=== PATIENT | female | born 1940 | race Caucasian/White ===

== ENCOUNTER 2019-03-29 08:50 | Emergency (ER) | payer MEDICARE ==
--- OUTSIDE RECORDS SUMMARY | 2019-03-29 09:16 | XMS REPORT | Continuity of Care Document ---
:1940 External Reference #:[id number] Author Name Marcelino Patricia MD (transmitted by agent of provider Wendi Mcgill) Address [address] [place] [address] Care Team Providers Name Role Phone Juice Esparza MD - Care Team Information Swaging Machine Operator [phone] Endocrinology, Diabetes & Metabolism Tracy Gatica M.D. - Orthopaedic Care Team Information Swaging Machine Operator Surgery Femi Adler M.D. - Orthopaedic Care Team Information Swaging Machine Operator [phone] Surgery Savannah Wharton MD - Care Team Information Swaging Machine Operator [phone] Ophthalmology Marcelino Patricia MD - Family Care Team Information Swaging Machine Operator Medicine Amp Urology Care Team Information Swaging Machine Operator [phone] Jacob Ch DPM - [place] Operator Care Team Information Swaging Machine Operator [phone] Problems Active Problems Provider Date Diverticulitis of colon Onset: 03/06/2016 Type 2 diabetes mellitus Onset: 06/28/2011 Multiple sclerosis Onset: 06/28/2011 Hyperlipidemia Onset: 06/28/2011 Dysuria Onset: 06/28/2011 Female stress incontinence Onset: 06/28/2011 Social History Type Date Description Comments Sex Unknown ETOH Use Denies alcohol use Tobacco Use Reviewed: 03/05/16 Patient has never smoked Smoking Status Reviewed: 03/17/19 Patient has never smoked Allergies, Adverse Reactions, Alerts Active Allergies Reaction Severity Comments Date Tape 06/05/2018 Medications Active Medications SIG Qnty Indications Ordering Provider Date Onetouch Ultra Blue test twice a 100units R73.03 Marcelino 01/18/2019 day and as MD [place] Strips needed dx R73.03 (E11.9 since 2011) E11.9 One Daily For Women 1 by mouth every day 90tabs Marcelino Patricia, 09/14 Tablets Shingrix ok to have 1units Mareclino Patricia, 03/16/2018 50mcg/0.5ML immunization at [facility] Vitamin D take 1 capsule by 4caps Marcelino Patricia, 03/05/2016 (Ergocalciferol) mouth every week [id number] Capsules Cranberry Marcelino Patricia, 03/05/2016 Concentrate 500mg Capsules Oscal 500/200 D-3 1 po tid 90tabs 733.90 Marcelino Patricia, 06/28/2011 [id number] Tablets Baclofen take 4 once a day Unknown 10mg Tablets Donepezil HCL 1 by mouth once a Unknown 10mg day Tablets History Medications Acyclovir apply to affected 15gm B00.1 Marcelino Patricia, 09/21/2018 - 5% area 5 times 12/15/2018 Ointment daily for 5 days as needed Immunizations CPT Code Status Date Vaccine Lot # [id number] Given 03/11/2019 Fluzone High Dose 93780 Given 03/25/2018 Fluzone High Dose 39520 Given 03/13/2017 Tdap - Tetanus/Diptheria/Acellular Pertussis 24129 Given 03/13/2017 Fluzone High Dose 28408 Given 06/24/2016 Pneumococcal Conjugate Vaccine 13 Valent For Intramuscular Use 63732 Given 03/05/2016 Fluzone High Dose 76083 Given 03/03/2015 Fluzone High Dose 32858 Given 02/21/2014 Fluzone High Dose 47403 Given 05/05/2013 Fluzone High Dose 94030 Given 02/28/2012 Influenza Virus 3Yrs & Over 39321 Given 03/26/2011 Pneumonia Vaccine 30657 Given 01/05/2007 Tetanus And Diptheria (Td) For Adult Use Preservative Free 95041 Given 05/10/2004 Pneumonia Vaccine 12741 Given 05/03/2004 Influenza Virus 3Yrs & Over 97303 Given 03/31/2002 Influenza Virus 3Yrs & Over 97774 Given 03/11/2000 Influenza Virus 3Yrs & Over 76780 Given 03/14/1999 Flu Vaccine 23410 Given 03/27/1998 Flu Vaccine 89170 Given 05/18/1996 DT Vaccine Younger Than 7 Yrs 73142 Given 04/15/1995 Flu Vaccine 32048 Given 02/15/1994 Flu Vaccine Vital Signs Date Vital Result Comment 03/17/2019 9:27am Height 63.25 inches 5'3.25" Weight 167.00 lb Heart Rate 80 /min BP Systolic 120 mmHg BP Diastolic 58 mmHg Respiratory Rate 18 /min O2 % BldC Oximetry 97 % room air BMI (Body Mass Index) 29.3 kg/m2 12/15/2018 8:04am Weight 168.50 lb Heart Rate 81 /min BP Systolic 116 mmHg BP Diastolic 56 mmHg O2 % BldC Oximetry 97 % Results Test Date Facility Test Result H/L Range Note Comp Metabolic 12/08/2018 [facility] Sodium 142 mmol/L Normal 135-[address] [place] [address] [phone] Potassium 4.2 mmol/L Normal 3.5-5.0 Chloride 108 mmol/L Normal 101-111 Co2 Carbon Dioxide 32 mmol/L Normal 22-32 Anion Gap 2 mmol/L Normal 2-11 Glucose 108 mg/dL High 70-100 Blood Urea Nitrogen 15 mg/dL Normal 6-24 Creatinine 0.53 mg/dL Normal 0.51-0.95 BUN/Creatinine Ratio 28.3 High 8-20 Calcium 9.6 mg/dL Normal 8.6-10.3 Total Protein 5.9 g/dL Low 6.4-8.9 Albumin 3.9 g/dL Normal 3.2-5.2 Globulin 2.0 g/dL Normal 2-4 Albumin/Globulin Ratio 2.0 Normal 1-3 Total Bilirubin 0.70 mg/dL Normal 0.2-1.0 Alkaline Phosphatase 55 U/L Normal 34-104 Alt 17 U/L Normal 7-52 Ast 23 U/L Normal 13-39 Egfr Non- 111.3 >60 Egfr 134.6 >60 1 Laboratory test 12/08/2018 [facility] Hemoglobin A1c 5.9 % High 4.0-5.[address] (Glyco HGB) [place] [address] [phone] Urine 12/08/2018 [facility] Ur Microalbumin < 15.[address] (mg/L) mg/[place] [address] [phone] Urine Creatinine 53.37 mg/dL Urine Microalbumin/Creatinine TNP <31 3 1 Because ethnic data is not always readily available, this report includes an eGFR for both -Americans and non- Americans. The National Kidney Disease Education Program (NKDEP) does not endorse the use of the MDRD equation for patients that are not between the ages of 18 and 70, are , have extremes of body size, muscle mass, or nutritional status, or are non- or non-. According to the National Kidney Foundation, irrespective of diagnosis, the stage of the disease is based on the level of kidney function: Stage Description GFR(mL/min/1.73 m(2)) 1 Kidney damage with normal or decreased GFR 90 2 Kidney damage with mild decrease in GFR 60-89 3 Moderate decrease in GFR 30-59 4 Severe decrease in GFR 15-29 5 Kidney failure <15 (or dialysis) 2 Therapeutic target for the treatment of diabetes mellitus patients is <7% HBA1C, and in selective patients <6.0%. Please refer to [place] [employer] diabetic care guidelines for further information. 3 Unable to calculate due to low microalbumin Procedures Date Code Description Status 02/26/2019 297528750 Diabetic Foot Exam Completed 02/23/2019 [id number] Diabetic Retinal Eye Exam Completed 12/04/2018 [id number] Diabetic Foot Exam Completed 09/25/2018 [id number] Diabetic Foot Exam Completed 07/17/2018 [id number] Diabetic Foot Exam Completed 05/08/2018 [id number] Diabetic Foot Exam Completed 04/13/2018 [id number] Mammogram Completed 03/04/2018 [id number] Diabetic Foot Exam Completed 11/11/2012 [id number] Colonoscopy Completed Medical Devices Description No Information Available Encounters Type Date Location Provider Dx Diagnosis Office Visit 12/15/2018 [facility] Marcelino Patricia, R73.03 Prediabetes 8:00a G35 Multiple sclerosis Office Visit 11/16/2018 Sorting [employer] Operator Primary Marcelino E11.9 Type 2 diabetes 10:15a Dominick Patricia MD mellitus without complications L84 Corns and callosities Assessments Date Code Description Provider 03/17/2019 Z00.00 Encounter for general adult medical Marcelino Patricia MD examination without abnormal findings 03/17/2019 Z12.31 Encounter for screening mammogram for Marcelino Patricia MD malignant neoplasm of breast 03/17/2019 Z78.0 Asymptomatic menopausal state Marcelino Patricia MD 03/17/2019 E11.9 Type 2 diabetes mellitus without Marcelino Patricia MD complications 03/17/2019 G35 Multiple sclerosis Marcelino Patricia MD 12/15/2018 R73.03 Prediabetes Marcelino Patricia MD 12/15/2018 G35 Kelly sclerosis Marcelino Patricia MD 11/16/2018 E11.9 Type 2 diabetes mellitus without Marcelino Patricia MD complications 11/16/2018 L84 Corns and callosities Marcelino Patricia MD Plan of Treatment Future Appointment(s):06/04/2019 8:00 am - Marcelino Patricia MD at [facility]03/17/2019 - Marcelino Patricia MDZ00.00 Encounter for general adult medical examination without abnormal findingsNew Labs:CBC Auto Diff, Ordered: 03/17/19Z12.31 Encounter for screening mammogram for malignant neoplasm of breastNew Xrays:Mammogram Screening Gray, Ordered: 03/17/19Z78.0 Asymptomatic menopausal stateNew Xrays:Dexa Bone Study, Ordered: 03/17/19E11.9 Type 2 diabetes mellitus without complicationsNew Labs:Comp Metabolic Panel, Ordered: 03/17/19Hemoglobin A1c (Glyco HGB), Ordered: 03/17/19Lipid Profile ( Trig/Chol/HDL), Ordered: 03/17/19Urine Microalbumin Random, Ordered: Follow up:Follow up in 3 [id number] Multiple sclerosis Functional Status Description No Information Available Mental Status Description No Information Available Referrals Description No Information Available
--- OUTSIDE RECORDS SUMMARY | 2019-03-29 09:17 | XMS REPORT | Continuity of Care Document ---
:1940 External Reference #:[id number] Author Name Marcelino Patricia MD (transmitted by agent of provider Wendi Mcgill) Address [address] [place] [address] Care Team Providers Name Role Phone Juice Esparza MD - Care Team Information News Producer [phone] Endocrinology, Diabetes & Metabolism Tracy Gatica M.D. - Orthopaedic Care Team Information News Producer Surgery Femi Adler M.D. - Orthopaedic Care Team Information News Producer [phone] Surgery Savannah Wharton MD - Care Team Information News Producer [phone] Ophthalmology Marcelino Patricia MD - Family Care Team Information News Producer Medicine Amp Urology Care Team Information News Producer [phone] Jacob Ch DPM - Returned Goods Repairer Care Team Information News Producer [phone] Problems Active Problems Provider Date Diverticulitis of [...] 09/14 Tablets Shingrix ok to have 1units Marcelino Patricia, 03/16/2018 50mcg/0.5ML immunization at [facility] pharmacy Vitamin D take 1 capsule by 4caps Marcelino Patricia, 03/05/2016 (Ergocalciferol) mouth every week [id number] Capsules Cranberry Marcelino Patricia, 03/05/2016 Concentrate 500mg Capsules Oscal 500/200 D-3 1 po tid 90tabs 733.90 Marcelino Patricia, 06/28/2011 [id number] Tablets Baclofen take 4 once a day Unknown 10mg Tablets Donepezil HCL 1 by mouth once a Unknown 10mg day Tablets History Medications Acyclovir apply to affected 15gm B00.1 Marcelino Patricia, 09/21/2018 - 5% area 5 times 12/15/2018 Ointment daily for 5 days as needed Immunizations CPT Code Status Date Vaccine Lot # [id number] Given 03/11/2019 Fluzone High Dose 45713 Given 03/25/2018 Fluzone High Dose 71132 Given 03/13/2017 Tdap - Tetanus/Diptheria/Acellular Pertussis 98723 Given 03/13/2017 Fluzone High Dose 96117 Given 06/24/2016 Pneumococcal Conjugate Vaccine 13 Valent For Intramuscular Use 14961 Given 03/05/2016 Fluzone High Dose 99176 Given 03/03/2015 Fluzone High Dose 29641 Given 02/21/2014 Fluzone High Dose 18303 Given 05/05/2013 Fluzone High Dose 44912 Given 02/28/2012 Influenza Virus 3Yrs & Over 04004 Given 03/26/2011 Pneumonia Vaccine 97544 Given 01/05/2007 Tetanus And Diptheria (Td) For Adult Use Preservative Free 00512 Given 05/10/2004 Pneumonia Vaccine 09053 Given 05/03/2004 Influenza Virus 3Yrs & Over 90444 Given 03/31/2002 Influenza Virus 3Yrs & Over 99959 Given 03/11/2000 Influenza Virus 3Yrs & Over 64989 Given 03/14/1999 Flu Vaccine 61288 Given 03/27/1998 Flu Vaccine 08937 Given 05/18/1996 DT Vaccine Younger Than 7 Yrs 52820 Given 04/15/1995 Flu Vaccine 89846 Given 02/15/1994 Flu Vaccine Vital Signs Date [...] Result H/L Range Note Comp Metabolic 12/08/2018 [facility] Sodium 142 mmol/L Normal 135-[address] [place] [address] [phone] Potassium 4.2 mmol/L Normal 3.5-5.0 Chloride 108 [...] Egfr 134.6 >60 1 Laboratory test 12/08/2018 [facility] Hemoglobin A1c 5.9 % High 4.0-5.[address] (Glyco HGB) [place] [address] [phone] Urine 12/08/2018 [facility] Ur Microalbumin < 15.[address] (mg/L) mg/[place] [address] [phone] Urine Creatinine 53.37 mg/dL Urine Microalbumin/Creatinine TNP [...] in selective patients <6.0%. Please refer to [place] [employer] diabetic care guidelines for further information. 3 Unable to calculate due to low microalbumin Procedures Date Code Description Status 02/26/2019 [id number] Diabetic Foot Exam Completed 02/23/2019 [id number] Diabetic Retinal Eye Exam Completed 12/04/2018 [id number] Diabetic Foot Exam Completed 09/25/2018 [id number] Diabetic Foot Exam Completed 07/17/2018 [id number] Diabetic Foot Exam Completed 05/08/2018 [id number] Diabetic Foot Exam Completed 04/13/2018 [id number] Mammogram Completed 03/04/2018 [id number] Diabetic Foot Exam Completed 11/11/2012 [id number] Colonoscopy Completed Medical Devices Description No Information Available Encounters Type Date Location Provider Dx Diagnosis Office Visit 12/15/2018 [facility] Marcelino Patricia, R73.03 Prediabetes 8:00a G35 Multiple sclerosis Office Visit 11/16/2018 Antenna Installer Primary Marcelino E11.9 Type 2 diabetes 10:15a Dominick Patricia MD mellitus without complications L84 Corns and callosities Assessments Date Code Description Provider 12/15/2018 R73.03 Prediabetes aMrcelino Patricia MD 12/15/2018 G35 Multiple sclerosis Marcelino Patricia MD 11/16/2018 E11.9 Type 2 diabetes mellitus without Marcelino Patricia MD complications 11/16/2018 L84 Corns and callosities Marcelino Patricia MD Plan of Treatment Future Appointment(s):06/17/2019 8:00 am - Marcelino Patricia MD at [facility] Functional Status Description No Information Available Mental Status Description No Information Available Referrals Description No Information Available
[2019-03-29 09:47] VITALS: BP 124/61
--- NOTE | 2019-03-29 10:12 | ED ---
Upper Extremity Pain - HPI Summary HPI Summary: 78 yr old with the complaint of right elbow pain. She states she does not recall an injury, but she felt like she bumped the posterior right elbow last week, and gradually over the past weekend she had progressive swelling, and redness of the skin over the elbow. No fever. She does not feel sick. She does feel a little tired. She is able to move the right elbow joint fairly well. - History of Current Complaint Chief Complaint: UCUpperExtremity Stated Complaint: RT ELBOW PAIN Time Seen by Provider: 03/29/19 09:48 - Allergies/Home Medications Allergies/Adverse Reactions: Allergies Allergy/AdvReac Type Severity Reaction Status Date / Time adhesive tape Allergy Unknown Vomiting Verified 03/29/19 09:32 codeine Allergy Unknown Vomiting Verified 03/29/19 09:32 Home Medications: Home Medications Acetaminophen TAB* [Tylenol TAB*] 650 mg PO Q4H PRN 03/29/19 [History Confirmed 03/29/19] Baclofen TAB* [Lioresal TAB*] 10 mg PO TID 03/29/19 [History Confirmed 03/29/19] Calcium Carbonate/Vitamin D3 [Calcium 600 + Vit D Tablet] 1 each PO DAILY [History Confirmed 03/29/19] Cholecalciferol (Vitamin D3) [Vitamin D3] 50,000 unit PO WEEKLY 03/29/19 [ History Confirmed 03/29/19] Cranberry 400 mg PO BID 03/29/19 [History Confirmed 03/29/19] Donepezil TAB* [Aricept 5 MG TAB*] 10 mg PO DAILY 03/29/19 [History Confirmed ] Flaxseed [Flax Seeds] 1 pow PO DAILY 03/29/19 [History Confirmed 03/29/19] Immune Globuln 10%-10GM(PRIVI) [Privigen 10% - 10GM*] 0 gm 03/29/19 [History] L.acidoph,Paracasei, B.lactis [Probiotic] 1 each PO DAILY 03/29/19 [History Confirmed 03/29/19] Multivitamin [Multivitamins] 1 each PO DAILY 03/29/19 [History Confirmed ] PMH/Surg Hx/FS Hx/Imm Hx Endocrine/Hematology History: Comment Only: Hx Diabetes - PRE - Surgical History Surgery Procedure, Year, and Place: T&A. RT FOOT SURGERY, PARTIAL HYSTERECTOMY. A&P REPAIR Infectious Disease History: No Infectious Disease History: Denies: Traveled Outside the [place] in Last 30 Days - Family History Known Family History: Positive: None - Social History Occupation: Retired Alcohol Use: None Substance Use Type: Reports: None Smoking Status (MU): Never Smoked Tobacco Review of Systems Positive: Fatigue Positive: Other - right elbow skin redness and pain All Other Systems Reviewed And Are Negative: Yes Physical Exam Triage Information Reviewed: Yes Vital Signs On Initial Exam: Initial Vitals Temp Pulse Resp BP Pulse Ox 98.9 F 84 20 124/61 99 03/29/19 09:38 03/29/19 09:38 03/29/19 09:38 03/29/19 09:38 03/29/19 09:38 Vital Signs Reviewed: Yes Appearance: Positive: Well-Appearing, No Pain Distress Skin: Positive: Other - redness over the right elbow skin Head/Face: Positive: Normal Head/Face Inspection Eyes: Positive: EOMI ENT: Positive: Normal ENT inspection Neck: Positive: Nontender Respiratory/Lung Sounds: Positive: Clear to Auscultation Cardiovascular: Positive: RRR. Negative: Murmur Abdomen Description: Negative: Distended Musculoskeletal: Positive: Other - She has intact flexion, extension, supination and pronation of the right elbow joint on ROM test. No effusion. She has redness to the skin of the posterior arm without effusion of the olecrenon bursae. Neurological: Positive: Sensory/Motor Intact, Alert, Oriented to Person Place, Time, CN Intact II-III Diagnostics - Vital Signs Vital Signs Temp Pulse Resp BP Pulse Ox 03/29/19 09:38 98.9 F 84 20 124/61 99 - Laboratory Lab Statement: Any lab studies that have been ordered have been reviewed, and results considered in the medical decision making process. Course/Dx - Course Course Of Treatment: 78 with right elbow cellulitis. MARY homeo n Bactrim - Diagnoses Provider Diagnoses: Cellulitis of right elbow Discharge ED - Sign-Out/Discharge Documenting (check all that apply): Patient Departure All imaging exams completed and their final reports reviewed: No Studies - Discharge Plan Condition: Good Disposition: HOME Prescriptions: Sulfamethox/Trimethoprim DS* [Bactrim DS 800/160 TAB*] 1 tab PO BID #20 tab Patient Education Materials: Cellulitis (ED) Referrals: Marcelino Patricia MD [Primary Care Provider] - 2 Days - Billing Disposition and Condition Condition: GOOD Disposition: Home
== END 2019-03-29 10:09 | disposition home or self-care (01) ==
LOC: UCCORT 08:50
DX: L03.113 Cellulitis of right upper limb (principal); R53.83 Other fatigue; Z91.09 Other allergy status, other than to drugs and biological substances; Z88.5 Allergy status to narcotic agent
CPT/HCPCS: 99212; G0463

== ENCOUNTER 2022-01-10 07:51 | Inpatient (IN) ==
[~2022-01-10 07:51] MED LIST: Acetaminophen IV 1 GM/100ML 1,000 MG/100 ML BAG IV ONE; Buffered Lidocaine 1% SYRIN 1 ml INTRADERM ONE; Dexamethasone IV 4 MG/ML VIAL 1 ml VIAL IV SLOW PU ONE; Dexamethasone IV 4 MG/ML VIAL 1 ml VIAL ONE; Famotidine IV 10 MG/ML 2 ml VIAL (20 mg) IV ONE; Lactated Ringers 1000 ml BAG 1,000 ML IV SCH; Midazolam 2 mg/2 ml VIAL 1 mg/ml 2 ml VIAL (2 mg) ONE; Ondansetron 4 mg VIAL 2 MG/ML 2 ml VIAL ONE; fentaNYL 100 mcg/2 ml 50 MCG/ML VIAL ONE
[2022-01-10] MEDS ORDERED: Dexamethasone IV 4 MG/ML VIAL 1 ml VIAL ONE (08:06)
[2022-01-10] MEDS ORDERED: Famotidine IV 10 MG/ML 2 ml VIAL (20 mg) ONE (08:06)
[2022-01-10] MEDS ORDERED: ceFAZolin 2 GM PREMIX 2 GM/50 ML BAG ONE (08:06)
[2022-01-10] MEDS ORDERED: Buffered Lidocaine 1% SYRIN 1 ml INTRADERM ONE (08:43)
[2022-01-10] MEDS ORDERED: Midazolam 2 mg/2 ml VIAL 1 mg/ml 2 ml VIAL (2 mg) ONE (09:43)
[2022-01-10] MEDS ORDERED: fentaNYL 100 mcg/2 ml 50 MCG/ML VIAL ONE (09:43)
[2022-01-10] MEDS ORDERED: ROPIVACAINE 5 MG/ML 30 ML BTL (0.5%) ONE (09:58)
[2022-01-10] MEDS ORDERED: Naloxone 0.4 mg VIAL 0.4 mg/ml 1 ml VIAL IV PRN (11:00)
[2022-01-10] MEDS ORDERED: fentaNYL 100 mcg/2 ml 50 MCG/ML VIAL IV PRN (11:00)
[2022-01-10] MEDS ORDERED: Prochlorperazine 5 mg/ml 2 ml VIAL (10 mg) IV PRN (11:00)
[2022-01-10] MEDS ORDERED: Morphine 4 MG/ML VIAL (1 ml) IV PRN (11:00)
[2022-01-10] MEDS ORDERED: Sterile Water for Inj 10 ML ONE (11:09)
[2022-01-10] MEDS ORDERED: Ondansetron 4 mg VIAL 2 MG/ML 2 ml VIAL IV PRN (12:36)
[2022-01-10] MEDS ORDERED: Morphine 2 MG/ML SYRINGE IV PRN (12:36)
[2022-01-10] MEDS ORDERED: Ondansetron ODT 4 mg TAB 4 MG TAB PO PRN (12:36)
[2022-01-10] MEDS ORDERED: Lactulose 30 ml UDC PO PRN (12:36)
[2022-01-10] MEDS ORDERED: Magnesium Hydroxide LIQ 30 ML UDC PO PRN (12:36)
[2022-01-10] MEDS ORDERED: HYDROmorphone 0.5 MG/0.5 ML SYRINGE ONE (12:46)
[2022-01-10] MEDS ORDERED: Lactated Ringers 1000 ml BAG 1,000 ML IV SCH (13:00)
[2022-01-10] MEDS: ceFAZolin 1 GM ADVAN 1 GM in NS 0.9% 50 ML 50 ML IVPB SCH (17:40)
[2022-01-10] MEDS: Magnesium Hydroxide LIQ 30 ML UDC PO SCH (20:48)
[2022-01-11] MEDS: ceFAZolin 1 GM ADVAN 1 GM in NS 0.9% 50 ML 50 ML IVPB SCH ×2 (02:20→11:32)
[2022-01-11 06:50] LABS: Hematocrit 32 % (35-47); Hemoglobin 11.3 g/dL (12.0-16.0); Mean Platelet Volume 8.4 fL (7.4-10.4); Platelet Count 180 10^3/uL (150-450)
[2022-01-11 07:15] LABS: Calcium 8.6 mg/dL (8.6-10.3); Potassium 3.9 mmol/L (3.5-5.0); eGFR CKD-EPI 88.2 (>60)
[2022-01-11] MEDS: Vitamin THERAPEUTIC TAB PO SCH (11:29)
[2022-01-11] MEDS: Magnesium Hydroxide LIQ 30 ML UDC PO SCH ×2 (11:31→20:34)
[2022-01-12 06:26] LABS: Hematocrit 32 % (35-47); Hemoglobin 10.6 g/dL (12.0-16.0); Mean Platelet Volume 8.7 fL (7.4-10.4); Platelet Count 170 10^3/uL (150-450)
[2022-01-12] MEDS: Magnesium Hydroxide LIQ 30 ML UDC PO SCH ×2 (08:59→20:58)
[2022-01-12] MEDS: Vitamin THERAPEUTIC TAB PO SCH (09:02)
[2022-01-13 06:14] LABS: Hematocrit 32 % (35-47); Mean Platelet Volume 8.6 fL (7.4-10.4); Platelet Count 189 10^3/uL (150-450)
[2022-01-13] MEDS: Vitamin THERAPEUTIC TAB PO SCH (07:57)
[2022-01-13] MEDS: Magnesium Hydroxide LIQ 30 ML UDC PO SCH ×2 (10:13→22:26)
[2022-01-14 06:50] LABS: Hematocrit 32 % (35-47); Hemoglobin 10.7 g/dL (12.0-16.0); Mean Platelet Volume 8.1 fL (7.4-10.4); Platelet Count 196 10^3/uL (150-450)
[2022-01-14] MEDS: Magnesium Hydroxide LIQ 30 ML UDC PO SCH (09:02)
[2022-01-14] MEDS: Vitamin THERAPEUTIC TAB PO SCH (09:13)
[2022-01-14] MEDS ORDERED: Dextran 70/Hypromellose Tears Eye Drops 15 ml BTL (for Artificials Tears) BOTH EYES PRN (10:00)
[2022-01-14 11:35] LABS: Rapid COVID-19 Molecular Undetected (Undetected)
[2022-01-14 12:00] VITALS: BP 116/67
[2022-01-14] MEDS ORDERED: Latanoprost 0.005% 2.5 ml BTL BOTH EYES SCH (21:00)
== END 2022-01-14 13:58 | DRG 470 ==
LOC: INTOOBSV 07:51 → AA 07:51 → SSU 12:37
PROVIDERS: ADMIT Orthopaedic Surgery Adult Reconstructive Orthopaedic Surgery; ATTEND Orthopaedic Surgery Adult Reconstructive Orthopaedic Surgery